=== PATIENT | female | born 1995 | race African-American/Black ===

== ENCOUNTER 2017-05-07 02:06 | Emergency (ER) | payer SELFPAY ==
[~2017-05-07] VITALS: Ht 170.2 cm; Wt 104.5 kg
[2017-05-07 02:09] VITALS: BP 126/72; PULSE 100; TEMP 99.5
[2017-05-07] MEDS ORDERED: PROZAC40 MG PO (02:12)
== END 2017-05-07 03:20 | disposition home or self-care (01) ==
LOC: COL.ER 02:06
DX: S91.312A Laceration without foreign body, left foot, initial encounter (principal); F41.9 Anxiety disorder, unspecified; Z23 Encounter for immunization; W25.XXXA Contact with sharp glass, initial encounter; Y92.59 Other trade areas as the place of occurrence of the external cause